=== PATIENT | female | born 2000 | race Caucasian/White ===

== ENCOUNTER 2020-11-30 14:00 | Emergency (ER) | payer OTHER ==
[2020-11-30 15:25] LABS: HEMOGLOBIN 13.9 gm/dl (12.3-15.3); RED BLOOD COUNT 4.57 M/UL (4.00-5.10); WHITE BLOOD COUNT 16.9 K/UL (4.5-11.0)
[2020-11-30 15:46] LABS: BUN/CREATININE RATIO 5 (0-10)
[2020-11-30] MEDS ORDERED: OMNICEF 300 MG300 MG PO (17:56)
[2020-11-30] MEDS ORDERED: ZOFRAN ODT 4 MG4 MG PO (17:56)
== END 2020-11-30 18:02 | disposition home or self-care (01) ==
LOC: ER1 14:00
PROVIDERS: Student in an Organized Health Care Education/Training Program
DX: N12 Tubulo-interstitial nephritis, not specified as acute or chronic (principal); F17.210 Nicotine dependence, cigarettes, uncomplicated; Z20.822 Contact with and (suspected) exposure to COVID-19
CPT/HCPCS: 0240U; 71045; 80053; 81001; 83605; 83690; 83735; 83880; 84100; 84703; 85025; 85610; 85652; 86140; 87040; 87077; 87086; 87186; 93005; 96374; 99284; J0696; Q9967